=== PATIENT | female | born 2005 | race African-American/Black ===

== ENCOUNTER 2025-11-04 19:54 | Emergency (ER) | payer OTHER ==
[~2025-11-04] VITALS: Ht 167.6 cm; Wt 68.5 kg
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
[2025-11-04 22:40] VITALS: BP 122/66; TEMP 98.7
[2025-11-04 22:50] VITALS: PULSE 68; RESP 18; O2SAT 98
== END 2025-11-04 23:12 | disposition home or self-care (01) ==
LOC: ER 19:54
DX: S13.4XXA Sprain of ligaments of cervical spine, initial encounter (principal); S29.012A Strain of muscle and tendon of back wall of thorax, initial encounter; S33.5XXA Sprain of ligaments of lumbar spine, initial encounter; V43.62XA Car passenger injured in collision with other type car in traffic accident, initial encounter; Y93.89 Activity, other specified; Y92.410 Unspecified street and highway as the place of occurrence of the external cause; Y99.8 Other external cause status
CPT/HCPCS: 72040; 72070; 72100